=== PATIENT | female | born 1960 | race Caucasian/White ===

== ENCOUNTER 2019-01-15 05:39 | Inpatient (IN) | payer OTHER ==
[2019-01-10 16:59] LABS: BASOPHILS # (AUTO) 0.1 X10'3 (0-0.2); EOSINOPHILS # (AUTO) 0.4 X10'3 (0-0.9); MONOCYTES # (AUTO) 0.4 X10'3 (0-0.9); MONOCYTES % (AUTO) 6.1 % (2-12); PRE OP HEMOGLOBIN 15.5 g/dL (12.0-16.0)
[2019-01-10 17:01] LABS: EOSINOPHILS % (AUTO) 5.3 % (0-6); LYMPHOCYTES # (AUTO) 2.5 X10'3 (1.1-4.8); LYMPHOCYTES % (AUTO) 36.8 % (21-51); MEAN CORPUSCULAR HEMOGLOBIN 32.1 PG (27.0-31.0); MEAN CORPUSCULAR HGB CONC 34.7 g/dL (33.0-36.5); MEAN CORPUSCULAR VOLUME 92.7 FL (78-98); MEAN PLATELET VOLUME 11.3 FL (7.4-10.4); NEUTROPHILS # (AUTO) 3.4 X10'3 (1.8-7.7); NEUTROPHILS % (AUTO) 50.8 % (42-75); PRE OP HEMATOCRIT 44.9 % (35.0-45.0); RED BLOOD COUNT 4.84 X10'6 (4.20-5.60); RED CELL DISTRIBUTION WIDTH 13.4 % (11.5-14.5)
[2019-01-10 17:12] LABS: LARGE PLATELETS MODERATE; PLATELET ESTIMATE DECREASED; PRE OP PLATELET COUNT 141 X10'3 (140-440)
[2019-01-10 17:17] LABS: ALBUMIN 3.9 G/DL (3.4-5.0); ALBUMIN/GLOBULIN RATIO 1.3 (1.1-1.5); ALKALINE PHOSPHATASE 86 IU/L (46-116); BLOOD UREA NITROGEN 14 MG/DL (7-18); BUN/CREATININE RATIO 15.1 (6.6-38.0); CALCIUM 9.2 MG/DL (8.5-10.1); CHLORIDE 103 MMOL/L (99-107); CREATININE 0.93 MG/DL (0.40-0.90); PRE OP ALT 31 U/L (30-65); PRE OP ANION GAP 9 (8-16); PRE OP AST 26 U/L (10-37); PRE OP BILIRUB, TOTAL 0.5 MG/DL (0.0-1.0); PRE OP GLUCOSE 105 MG/DL (70-104); PRE OP POTASSIUM 3.9 MMOL/L (3.4-5.1); PRE OP SODIUM 138 MMOL/L (135-145); TOTAL PROTEIN 6.9 G/DL (6.4-8.2); eGFR 62 ML/MIN
[2019-01-15] VITALS (18 sets, daily range): BP systolic 92–141; BP diastolic 46–77
[~2019-01-15] VITALS: Ht 162.6 cm; Wt 90.7 kg
[~2019-01-15 05:39] MED LIST: ALBU8HFA PO; BECL7.3A INH; CYCL5TAB79 PO; DOCU-267 PO; HYDR25TA4 PO; LEVO100T PO; MONT10TA24 PO; NAPR-996 PO; POTA20TA19 PO; TOPI50TA24 PO; TRAM50TA2 PO; albuterol 2.5 MG/3 ML nebule NEB ONE; cefazolin/dext.iso 2gm/100ml 100 ML IV ONE; famotidine 20mg tablet PO ONE; ringers solution, lacted 1,000 ML IV SCH; tranexamic acid inj. 900 MG in normal saline 100ml IV soln 100 ML IV ONE; vancomycin inj 1,500 MG in normal saline 300ml IV soln IV ONE
[2019-01-15] MEDS ORDERED: LIDOcaine 1% (10mg/ml) 2ml vial ONE (06:05)
[2019-01-15] MEDS ORDERED: ROPIVAcaine 0.5% (5mg/ml) 30ml vial ONE ×2 (06:53→08:45)
[2019-01-15] MEDS ORDERED: ketorolac trometh. 30mg/ml inj. ONE (06:53)
[2019-01-15] MEDS ORDERED: sevoflurane 250ml liquid IH ONE (07:08)
[2019-01-15] MEDS ORDERED: fentaNYL/PF 50MCG/1 ML 2ML syringe ONE ×2 (07:21→08:23)
[2019-01-15] MEDS ORDERED: MIDAZolam 5mg/5ml vial ONE (07:22)
[2019-01-15] MEDS ORDERED: ringers solution, lacted 1,000 ML IV SCH (08:37)
[2019-01-15] MEDS ORDERED: ROPIVAcaine 0.2%/PF PUMP/bolus 550 ML INTERSCALE SCH (08:37)
[2019-01-15] MEDS ORDERED: morphine 4 MG/ML inj SYRINge IV PRN ×2 (08:40)
[2019-01-15] MEDS ORDERED: proCHLORperazine 10 MG/2 ml inj IV PRN (08:40)
[2019-01-15] MEDS ORDERED: ROPIVAcaine 0.2% (10 MG/5 ML) BOLUS INJECTION INTERSCALE PRN (08:40)
[2019-01-15] MEDS ORDERED: meperidine/PF 25mg/ml syringe IV PRN ×3 (08:40)
[2019-01-15] MEDS ORDERED: ondansetron/PF 4mg/2ml inj IV PRN ×2 (08:40→10:00)
[2019-01-15] MEDS ORDERED: dexamethasone sod phosphate 4mg/ml inj. ONE (08:45)
[2019-01-15] MEDS ORDERED: ondansetron/PF 4mg/2ml inj ONE (08:45)
[2019-01-15] MEDS ORDERED: rocuronium 10mg/ml inj IV ONE (08:45)
[2019-01-15] MEDS ORDERED: neostigmine methylsulfate 1 MG/ML 10ml vial ONE (08:45)
[2019-01-15] MEDS ORDERED: glycopyrrolate 0.2mg/ml inj ONE (08:45)
[2019-01-15] MEDS ORDERED: propofol inj 20 ML IV ONE (08:45)
[2019-01-15] MEDS ORDERED: LIDOcaine 1%/PF 5ML 10 MG/ML VIAL ONE (08:45)
[2019-01-15] MEDS ORDERED: meperidine/PF 50mg/ml syringe ONE (09:25)
--- NOTE | 2019-01-15 09:35 | NUR ---
Received from OR via BED , accompanied by Anesthesiologist and report given by Anesthesiolgist. PATIENT WAKING UP, DENIES PAIN, V/S WNL, NEUROVASCULAR CHECKS INTACT, DRESSING TO RIGHT SHOULDER CDI WITH SLING AND COLD POWDER PACK ON AND ONQUE BALL BLOCK AT 4ML/HR. SCD ON. 18G KRISTOFERE PIV.
[2019-01-15] MEDS ORDERED: bisacodyl 10mg suppository rectal RC PRN (10:00)
[2019-01-15] MEDS ORDERED: cyclobenzaprine 10mg tablet PO PRN (10:00)
[2019-01-15] MEDS ORDERED: magnesium hydroxide 30ml (MOM) UD suspension PO PRN (10:00)
[2019-01-15] MEDS ORDERED: traMADol 50MG tablet PO PRN (10:00)
[2019-01-15] MEDS ORDERED: acetaminophen 325mg tablet PO PRN (10:00)
[2019-01-15] MEDS ORDERED: oxyCODONE IR 5mg (immed. release) tablet PO PRN ×2 (10:00)
[2019-01-15] MEDS ORDERED: HYDROmorphone inj. 0.5 MG/0.5 ML DISP.SYRIN IV PRN (10:00)
[2019-01-15] MEDS ORDERED: HYDROmorphone 1 mg/ml syringe IV PRN (10:00)
[2019-01-15] MEDS ORDERED: diphenhydrAMINE 25mg capsule PO PRN ×2 (10:00)
[2019-01-15] MEDS ORDERED: albuterol 2.5 MG/3 ML nebule NEB PRN (10:15)
--- NOTE | 2019-01-15 10:45 | NUR ---
PATIENT A&OX4, DENIES PAIN, V/S WNL, NEUROVASCULAR CHECKS INTACT, DRESSING TO RIGHT SHOULDER CDI WITH SLING AND COLD POWDER PACK ON AND ONQUE BALL BLOCK AT 4ML/HR. SCD ON. 18G LUE PIV. pATIENT TAKEN TO ORTHO ROOM AND HOOKED UP TO MONITORS IN ROOM AND PULSE OX, CALL LIGHT GIVEN TO PATIENT AND Problems reprioritized. Patient report given , questions answered & plan of care reviewed [employer]ING [employer]OCIATE WHO HAS TAKEN OVER PATIENT CARE.
[2019-01-15] MEDS ORDERED: tranexamic acid inj. 900 MG in normal saline 100ml IV soln 100 ML IV ONE (13:00)
[2019-01-15] MEDS: acetaminophen 325mg tablet PO SCH ×2 (13:56→19:27)
[2019-01-15] MEDS: ceFAZolin 1GM/D5W- ADD-VANTAGE 50 ML IV SCH (16:25)
--- NOTE | 2019-01-15 18:27 | NUR ---
PT HAS BEEN USING ONQ PUMP BOLUS BUTTON FOR PAIN PREVENTION ROUGHLY EVERY 30 MINUTES. EDUCATED PT ANOUT PROPER USE OF ONQ PUMP AND BOLUS BUTTON AND INSTRUCTED PT TO PUSH CALL LIGHT WHEN USING IT TO LET NURSING KNOW FOR PROPER DOCUMENTATION.
[2019-01-15] MEDS: naproxen 500mg tablet PO SCH (19:27)
[2019-01-15] MEDS: budesonide 0.5mg/2ml UD nebule IH SCH (19:45)
[2019-01-15] MEDS ORDERED: vancomycin/NS 1 GM ADD-VANTAGE 250 ML IV SCH (20:00)
[2019-01-15] MEDS ORDERED: sennosides 8.6mg tablet PO SCH (21:00)
[2019-01-15] MEDS ORDERED: docusate sod 100mg capsule PO SCH (21:00)
[2019-01-15] MEDS ORDERED: montelukast 10mg tablet PO SCH (21:00)
[2019-01-16] MEDS: ceFAZolin 1GM/D5W- ADD-VANTAGE 50 ML IV SCH (00:16)
[2019-01-16] MEDS: acetaminophen 325mg tablet PO SCH ×2 (01:38→07:20)
--- NOTE | 2019-01-16 01:45 | NUR ---
pt reports an 8/10 pain in her back pt refuses pain medication states pain id tolerable, reeducated pt about turning and shifting weight to change position in bed.
[2019-01-16 02:25] VITALS: BP 102/48
[2019-01-16 06:00] VITALS: BP 100/37
--- NOTE | 2019-01-16 06:10 | NUR ---
Problems reprioritized. Patient report given, questions answered & plan of care reviewed with Leatha MCKENNA.
[2019-01-16 06:54] VITALS: BP 99/43
[2019-01-16] MEDS: naproxen 500mg tablet PO SCH (07:19)
[2019-01-16] MEDS: budesonide 0.5mg/2ml UD nebule IH SCH (07:21)
[2019-01-16] MEDS ORDERED: levoTHYROXINE 100mcg tablet PO SCH (08:00)
[2019-01-16] MEDS ORDERED: topiramate 25mg tablet PO SCH (08:00)
[2019-01-16] MEDS ORDERED: potassium Cl 20 mEq SR tablet PO SCH (08:00)
[2019-01-16] MEDS ORDERED: HYDROchlorothiazide 25mg tablet PO SCH (08:00)
[2019-01-16] MEDS ORDERED: ASPI-1 PO (08:22)
[2019-01-16] MEDS ORDERED: aspirin 325mg tablet PO SCH (08:30)
[2019-01-16 10:00] VITALS: BP 120/60
--- NOTE | 2019-01-16 10:58 | NUR ---
Student Medication Administration:For this medication-pass time frame [id number], all medications were reviewed,administered and documented per hospital policy by Aby Harrington. Student documentation:I have reviewed and agree with all interventions, assessments performed and documented by Aby Harrington.
--- NOTE | 2019-01-16 11:00 | NUR ---
Received discharge orders from Dr. Reza. IV dc'd from [facility] with cannula intact. No redness/swelling at IV site. Applied bandaid over IV entry site. Reviewed discharge orders with pt. Pt has a follow up appt with on 01/29. Gave pt a total of 3 medium size island dressings to change right shoulder dressing. Instructed pt on use of Ropivicaine and to dc when empty. Assisted pt to w/c and transported to [facility] for discharge to a private vehicle.
[2019-01-17] MEDS ORDERED: acetaminophen 325mg tablet PO PRN (10:00)
== END 2019-01-16 10:55 | disposition home or self-care (01) | DRG 483 ==
LOC: PAS IN 05:39 → EDSTATUS 07:30 → ORTHO 4S 10:45 → EDSTATUS 11:30 → UNDODISIN 12:00
PROVIDERS: ADMIT Orthopaedic Surgery; ATTEND Orthopaedic Surgery
PROC: 0LS30ZZ Reposition Right Upper Arm Tendon, Open Approach (ICD-10-PCS; 2019-01-15)
PROC: 3E0T3BZ Introduction of Anesthetic Agent into Peripheral Nerves and Plexi, Percutaneous Approach (ICD-10-PCS; 2019-01-15)
PROC: 0RRJ0JZ Replacement of Right Shoulder Joint with Synthetic Substitute, Open Approach (ICD-10-PCS; principal; 2019-01-15 07:08)
DX: M19.111 Post-traumatic osteoarthritis, right shoulder (principal); E03.9 Hypothyroidism, unspecified; M75.111 Incomplete rotator cuff tear or rupture of right shoulder, not specified as traumatic; G89.29 Other chronic pain; M54.9 Dorsalgia, unspecified; J44.9 Chronic obstructive pulmonary disease, unspecified; M81.0 Age-related osteoporosis without current pathological fracture; E66.9 Obesity, unspecified; Z68.34 Body mass index [BMI] 34.0-34.9, adult; Z87.891 Personal history of nicotine dependence; Z79.899 Other long term (current) drug therapy
CPT/HCPCS: Z7506; Z7508; 36415; 71046; 80053; 82948; 84443; 85025; 87081; 94640; 94760; 97110; 97161; 97530; A4565; A4618; A7000; C1713; C1776; G0378; J0690; J1100; J1885; J2001; J2175; J2250; J2405; J2704; J2710; J2795; J3010; J3370; J3490; J7120; J7626; Q0163